=== PATIENT | male | born 1990 | race Caucasian/White ===

== ENCOUNTER 2021-04-18 11:55 | Outpatient (CLI) | payer OTHER | END 2021-04-18 23:59 | disposition home or self-care (01) | LOC: EDBD → LAB.N 11:55 | PROVIDERS: ATTEND Family Medicine | DX: U07.1 COVID-19 (principal) | CPT/HCPCS: 87275; 87276 ==

== ENCOUNTER 2022-04-23 14:51 | Emergency (ER) | payer OTHER ==
[2022-04-23 15:20] LABS: BASOPHILS % (AUTO) 0.3 %; EOSINOPHILS # (AUTO) 0.1 10^3/uL (0.0-0.7); EOSINOPHILS % (AUTO) 2.1 %; HCT - HEMATOCRIT 43.5 % (42.0-52.0); HGB - HEMOGLOBIN 15.1 g/dL (14.0-18.0); LYMPHOCYTES # (AUTO) 1.9 10^3/uL (1.5-3.5); LYMPHOCYTES % (AUTO) 32.2 %; MEAN CORPUSCULAR HEMOGLOBIN 29.8 pg (27.0-31.0); MEAN CORPUSCULAR HGB CONC 34.7 g/dL (32.0-36.0); MEAN CORPUSCULAR VOLUME 85.8 fL (80.0-94.0); MEAN PLATELET VOLUME 10.4 fL (7.4-11.4); MONOCYTES # (AUTO) 0.5 10^3/uL (0.0-1.0); MONOCYTES % (AUTO) 8.3 %; NEUTROPHILS # (AUTO) 3.3 10^3/uL (1.5-6.6); NEUTROPHILS % (AUTO) 56.9 %; PLT - PLATELET COUNT 279 10^3/uL (130-450); RED BLOOD COUNT 5.07 10^6/uL (4.70-6.10); RED CELL DISTRIBUTION WIDTH 12.7 % (12.0-15.0); WHITE BLOOD COUNT 5.8 x10^3/uL (4.8-10.8)
[2022-04-23 15:21] LABS: BILIRUBIN,URINE NEGATIVE (NEGATIVE); GLUCOSE, URINE (UA) NEGATIVE (NEGATIVE); KETONES,URINE (UA) NEGATIVE (NEGATIVE); LEUKOCYTE ESTERASE, URINE NEGATIVE (NEGATIVE); NITRITE,URINE NEGATIVE (NEGATIVE); OCCULT BLOOD,URINE NEGATIVE (NEGATIVE); PROTEIN,URINE NEGATIVE (NEGATIVE); UROBILINOGEN,URINE 1 (NORMAL) E.U./dL (NORMAL)
[2022-04-23 15:23] LABS: CLARITY,URINE CLEAR (CLEAR)
[2022-04-23 15:31] LABS: ALBUMIN 4.2 g/dL (3.2-5.5); ALBUMIN/GLOBULIN RATIO 1.4 (1.0-2.2); BILIRUBIN,TOTAL 0.7 mg/dL (0.2-1.0); CREATININE 1.3 mg/dL (0.6-1.2); TOTAL PROTEIN 7.3 g/dL (6.7-8.2)
--- NOTE | 2022-04-23 19:44 | ED Physician Documentation ---
History of Present Illness - Stated complaint Stated Complaint: MALE - Chief complaint Chief Complaint: Abd Pain - History obtained from History obtained from: Patient - Additonal information Additional information: 31-year-old male presents emergency department for evaluation of rectal bleeding. This has been a intermittent problem for a long time. He always has rectal bleeding when he strains to have hard bowel movements. He has been trying stool softeners but is recently moved to [facility]. He is scheduled to have a colonoscopy this upcoming Friday. He reports that he is never seen blood drip into the toilet before and on the advice of needing medical was told to come to the ER for further evaluation. No fevers no abdominal pain no vomiting. No pertinent past surgical history. History provided by patient. Reliable historian Review of Systems Constitutional: reports: Reviewed and negative Nose: reports: Reviewed and negative Cardiac: reports: Reviewed and negative Respiratory: reports: Reviewed and negative GI: reports: Reviewed and negative : reports: Other (Rectal bleeding) Skin: reports: Reviewed and negative Musculoskeletal: reports: Reviewed and negative Neurologic: reports: Reviewed and negative PD PAST MEDICAL HISTORY - Past Medical History Past Medical History: Yes Cardiovascular: None Respiratory: None Neuro: Headaches Endocrine/Autoimmune: None GI: Hemorrhoids : None HEENT: None Psych: None Musculoskeletal: None Derm: None - Past Surgical History Past Surgical History: Yes General: Other - Present Medications Home Medications: Ambulatory Orders Medication Instructions Recorded Confirmed Fluoxetine HCl [Prozac] 60 mg PO DAILY 04/23/22 04/23/22 Trazodone HCl 100 mg PO HS 04/23/22 04/23/22 - Allergies Allergies/Adverse Reactions: Allergies Allergy/AdvReac Type Severity Reaction Status Date / Time latex Allergy Hives Verified 04/23/22 14:58 - Social History Does the pt smoke?: No Smoking Status: Never smoker Does the pt drink ETOH?: No Does the pt have substance abuse?: No - Immunizations Immunizations are current?: Yes PD ED PE EXPANDED - General General: Alert, No acute distress - Rectal Rectal: Normal Tone, Foot Specialist present, Other (Superficial anal fissure at about 3:00. Digital rectal exam mildly tender but no blood in vault. No external hemorrhoids noted.) Results - Vitals Vitals: Vital Signs - 24 hr 04/23/22 04/23/22 15:01 18:26 Temperature 36.2 C L 36 C L Heart Rate 74 66 Respiratory 18 16 Rate Blood Pressure 148/94 H 159/99 H O2 Saturation 97 99 Oxygen O2 Source Room air - Labs Labs: Laboratory Tests 04/23/22 04/23/22 04/23/22 15:10 15:14 15:14 WBC 5.8 RBC 5.07 Hgb 15.1 Hct 43.5 MCV 85.8 MCH 29.8 MCHC 34.7 RDW 12.7 Plt Count 279 MPV 10.4 Neut # (Auto) 3.3 Lymph # (Auto) 1.9 [place] # (Auto) 0.5 Eos # (Auto) 0.1 Baso # (Auto) 0.0 Absolute Nucleated RBC 0.00 Nucleated RBC % 0.0 Sodium 139 Potassium 4.0 Chloride 103 Carbon Dioxide 29 Anion Gap 7.0 BUN 18 Creatinine 1.3 H Estimated GFR (MDRD) 64 L Glucose 87 Calcium 9.0 Total Bilirubin 0.7 AST 29 ALT 55 Alkaline Phosphatase 62 Total Protein 7.3 Albumin 4.2 Globulin 3.1 Albumin/Globulin Ratio 1.4 Lipase 30 Urine Color YELLOW Urine Clarity CLEAR Urine pH 6.0 Ur Specific Laurel >=1.030 H Urine Protein NEGATIVE Urine Glucose (UA) NEGATIVE Urine Ketones NEGATIVE Urine Occult Blood NEGATIVE Urine Nitrite NEGATIVE Urine Bilirubin NEGATIVE Urine Urobilinogen 1 (NORMAL) Ur Leukocyte Esterase NEGATIVE Ur Microscopic Review NOT INDICATED Urine Culture Comments NOT INDICATED PD Medical Decision Making - ED course Complexity details: reviewed results, considered differential, d/w patient ED course: 31-year-old male presents for rectal bleeding which has become a chronic problem and is associated with straining to defecate. He is scheduled to undergo colonoscopy on Friday. He strained harder than normal today and had blood drop into the toilet bowl causing pink water. He was advised by [employer] to come to the ER in order to be eligible for the colonoscopy on Friday. His CBC today is unremarkable. Abdominal exam revealed no tenderness. His digital rectal exam reveals a superficial anal fissure at about 3:00 on the left lateral recumbent side positioning. However no blood was seen in the vault and no external hemorrhoids noted. Given lack of abdominal pain and unremarkable labs will defer CT imaging at this time. The evaluation for rectal bleeding would be the planned colonoscopy w [facility] is upcoming. Patient is discharged home in stable condition Departure - Departure Disposition: Home, Self Care Clinical Impression: Rectal bleeding Condition: Stable Record reviewed to determine appropriate education?: Yes Comments: Raulito you were seen today for rectal bleeding after straining with defecation. This has become a chronic problem and it is the reason you are having a colonoscopy on Friday. Today your labs including your hemoglobin and hematocrit were normal. Your digital rectal exam does reveal a small anal fissure but there was no blood on the exam. You do need to continue with colonoscopy. MiraLAX may give you watery diarrhea and cause a lot of cramping. You might soften stool using Metamucil. Increase your water intake. Take a sitz bath this will be soothing to the rectal region. Return to the ER if your symptoms are worsening
[2022-04-23 20:07] VITALS: BP 140/80
== END 2022-04-23 20:08 | disposition home or self-care (01) ==
LOC: ED 14:51
DX: K62.5 Hemorrhage of anus and rectum (principal)
CPT/HCPCS: 36415; 80053; 81001; 81003; 83690; 85025; 87086; 99283

== ENCOUNTER 2022-04-30 06:26 | Outpatient (CLI) | payer OTHER ==
--- NOTE | 2022-04-30 11:59 | MRI Report ---
PROCEDURE: SHOULDER WO - RT INDICATIONS: PAIN IN RIGHT SHOULDER TECHNIQUE: Noncontrast oblique coronal T2 fast spin echo with fat saturation, oblique sagittal T1 spin echo and T2 fast spin echo with fat saturation, axial T1 spin echo and T2 fast spin echo with fat saturation t hrough the shoulder. COMPARISON: None. FINDINGS: Image quality: Excellent. Rotator cuff: There is moderate supraspinatus and subscapularis tendinosis and mild infraspinatus ten dinosis. There is partial-thickness tear involving the footprint of the supraspinous tendon. No tendo n retraction. No rotator cuff muscle atrophy. Bones and bursae: No bone marrow contusions or fractures. Mild acromioclavicular and glenohumeral zayda int degeneration. The acromion demonstrates conventional anatomy, without an os acromiale. There is a small amount of subacromial-subdeltoid, as well as subcoracoid bursal fluid, suggesting bursitis.. Capsule and soft tissues: There are postsurgical changes in the anterior inferior labrum. In the abs ence of intra-articular contrast, the glenohumeral ligaments appear intact. The long head of the bic eps tendon demonstrates normal location and morphology. Mild tendinosis of the long head of the bicep s tendon. The rotator interval appears normal, without fibrosis. The coracohumeral ligament is celestino l in thickness. There is an artifact or a small intra-articular body in the anterior inferior aspect of the glenohumeral joint (series 6 image 35). IMPRESSION: 1. Moderate supraspinous and subscapularis tendinosis, and mild infraspinous tendinosis. There is par tial-thickness tear involving the footprint of the supraspinous tendon. No full-thickness tendon tear or tendon retraction. No rotator cuff muscle atrophy. 2. Mild acromioclavicular and glenohumeral joint degeneration. 3. Mild subcutaneous acromial-subdeltoid and subcoracoid bursitis. 4. Mild tendinosis of the long head of the biceps tendon. 5. Postsurgical changes in the anterior inferior labrum. There is an artifact or a small intra-articu lar body in the anterior inferior aspect of the glenohumeral joint. Reviewed by: Mckinley Obrien MD on 04/30/2022 10:58 AM [facility] Approved by: Mckinley Obrien MD on 04/30/2022 10:58 AM [facility] Station ID: [id number]
== END 2022-04-30 06:27 | disposition home or self-care (01) ==
LOC: DI 06:26
PROVIDERS: ATTEND Preventive Medicine Aerospace Medicine
DX: M75.111 Incomplete rotator cuff tear or rupture of right shoulder, not specified as traumatic (principal); M19.011 Primary osteoarthritis, right shoulder; M75.51 Bursitis of right shoulder; M67.813 Other specified disorders of tendon, right shoulder

== ENCOUNTER 2022-09-03 11:56 | Outpatient (CLI) | payer OTHER ==
[~2022-09-03 11:56] MED LIST: BUPIVACAINE 0.5% PF 10 ML VIAL ONE; GADOBUTROL 7.5 MMOL/7.5 ML VIAL ONE; LIDOCAINE-MPF 1% 5 ML VIAL ONE; TRIAMCINOLONE 40 MG/ML VIAL ONE; iohexoL-240 10 ML VIAL IVP ONE
[2022-09-03] MEDS ORDERED: GADOBUTROL 7.5 MMOL/7.5 ML VIAL IVP ONE (13:55)
[2022-09-03] MEDS ORDERED: LIDOCAINE-MPF 1% 5 ML VIAL SUBQ ONE (13:56)
[2022-09-03] MEDS ORDERED: BUPIVACAINE 0.5% PF 10 ML VIAL IM ONE (13:57)
[2022-09-03] MEDS ORDERED: TRIAMCINOLONE 40 MG/ML VIAL IM ONE (13:57)
[2022-09-03] MEDS ORDERED: iohexoL-240 10 ML VIAL IVP ONE (13:58)
--- NOTE | 2022-09-03 14:47 | XRAY Report ---
PROCEDURE: Arthrogram Needle Placement INDICATIONS: PAIN IN RIGHT SHOULDER CONTRAST: Intra-articular contrast FLUOROSCOPY TIME: 0.1 min TECHNIQUE: The indications, alternatives, benefits, risks, and complications of the procedure were explained to the patient. Written informed consent was obtained and placed in the chart. The shoulder was examin ed fluoroscopically and a site for needle placement chosen for entry into the glenohumeral joint from an anterior approach. The skin was prepped and draped in the usual fashion, and 1% lidocaine infilt rated from skin down to joint capsule. A spinal needle was inserted into the glenohumeral joint, and a small amount of iodinated contrast media injected to confirm intra-articular placement of the need le tip. This was followed by approximately 12 mL dilute solution of a gadolinium containing MR contr ast agent. This was mixed with steroid and bupivacaine. The needle was removed and a dressing was applied. The patient was given postprocedural instructions and sent to the MR suite for MR imaging. FINDINGS: A single fluoroscopic spot image demonstrates intra-articular location of injected iodinated contrast . IMPRESSION: Successful fluoroscopically guided administration of dilute Gadolinium solution into the shoulder isabel seay for MR arthrogram. This was also mixed with steroid solution and bupivacaine. Reviewed by: Reynold Weber MD on 09/03/2022 2:45 PM PDT Approved by: Reynold Weber MD on 09/03/2022 2:45 PM PDT Station ID: [id number]
--- NOTE | 2022-09-03 18:02 | MRI Report ---
PROCEDURE: ARTHROGRAM SHOULDER - RT INDICATIONS: PAIN IN RIGHT SHOULDER CONTRAST: Dilute intra-articular gadolinium. TECHNIQUE: After the administration of 12 mL of dilute intra-articular Gadolinium contrast, oblique coronal T1 a nd T2 spin echo with fat saturation, oblique sagittal T1 spin echo with and without fat saturation, o blique sagittal T2 fast spin echo with fat saturation, axial T1 spin echo with fat saturation through the shoulder. COMPARISON: None. FINDINGS: Image quality: Excellent. Rotator cuff: Mild T2 signal elevation diffusely throughout the supraspinatus and infraspinatus tend ons at the humeral insertion sites extending the muscular tendinous junctions, indicating tendinopath y. The supraspinatus, infraspinatus, and subscapularis tendons appear intact throughout. No rotator cuff muscle atrophy on sagittal images. Bones and bursae: No bone marrow contusions or fractures. Mild acromioclavicular joint degeneration. The acromion demonstrates conventional anatomy, without an os acromiale. Capsule and soft tissues: There is moderate irregularity and undercutting of the anteroinferior labru m. The long head of the biceps tendon demonstrates normal location and morphology. The rotator inter falguni appears normal, without fibrosis. The coracohumeral ligament is of normal thickness. No intra-a rticular bodies. IMPRESSION: 1. Anteroinferior glenoid labral tearing. 2. Supraspinatus and infraspinatus tendinopathy. No rotator cuff tear. 3. Mild acromioclavicular joint osteoarthritis. Reviewed by: Meche Simmons MD on 09/03/2022 5:01 PM [facility] Approved by: Meche Simmons MD on 09/03/2022 5:01 PM [facility] Station ID: [id number]
== END 2022-09-03 11:57 | disposition home or self-care (01) ==
LOC: DI 11:56
PROVIDERS: ATTEND Orthopaedic Surgery
DX: S43.491A Other sprain of right shoulder joint, initial encounter (principal); M19.011 Primary osteoarthritis, right shoulder; M75.91 Shoulder lesion, unspecified, right shoulder
CPT/HCPCS: 23350; 73222; 77002; A9585; Q9966

== ENCOUNTER 2022-11-28 13:40 | Outpatient (CLI) | payer OTHER ==
--- NOTE | 2022-11-28 14:16 | Sleep Patient Instructions ---
Sleep Center Visit Summary - Patient Visit Information Reason for Visit: Initial consult for evaluation of sleep disordered breathing and other sleep issues. - Patient Instructions Instructions Attached: Sleep Study, Sleep Clinic Visit, Sleep Study Home Monitor Additional Instructions: You will be completing a sleep study, either an in-lab polysomnography (PSG) or home sleep study (HST). You will follow-up in the sleep care office after the sleep study is completed to hear the results and talk about therapy, if needed. You will be called by our office staff to schedule this appointment, but you may contact us with any questions. - Clinic Information Contact: [facility] [address] [place] [address] [email or web address] T: [phone]
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
[2022-11-28 15:41] VITALS: BP 130/92; O2SAT 96
== END 2022-11-28 13:41 | disposition home or self-care (01) ==
LOC: SC 13:40
PROVIDERS: ATTEND Nurse Practitioner Family
DX: R06.83 Snoring (principal); G47.8 Other sleep disorders; R06.81 Apnea, not elsewhere classified; R51.9 Headache, unspecified; G47.10 Hypersomnia, unspecified; E66.9 Obesity, unspecified; Z68.34 Body mass index [BMI] 34.0-34.9, adult
CPT/HCPCS: 99203; 99212

== ENCOUNTER 2022-12-19 19:26 | Outpatient (CLI) | payer OTHER | END 2022-12-19 19:27 | disposition home or self-care (01) | LOC: SC 19:26 | PROVIDERS: ATTEND Nurse Practitioner Family | DX: G47.33 Obstructive sleep apnea (adult) (pediatric) (principal); G47.61 Periodic limb movement disorder | CPT/HCPCS: 95810 ==

== ENCOUNTER 2022-12-31 14:33 | Outpatient (CLI) | payer OTHER ==
--- NOTE | 2022-12-31 15:20 | Sleep Patient Instructions ---
Sleep Center Visit Summary - Patient Visit Information Reason for Visit: Sleep study followup - Patient Instructions Instructions Attached: CPAP Dc, CPAP Additional Instructions: You are being started on CPAP therapy with pressure setting at 5-15 cmH2O. You will need to call the sleep care office to set up your follow up once you have your APAP machine and we will schedule a visit to check compliance and response to therapy at that time. You may call the office with any concerns about pressure feeling too low or too much for adjustment, if needed. You should contact DME supplier for any questions or concerns about mask or equipment. Please call office to schedule a follow up appointment in the sleep care office one month after obtaining new device. - Clinic Information Contact: [facility] [address] [place] [address] [email or web address] T: [phone]
--- NOTE | 2022-12-31 15:24 | SLEEP CARE CONSULTATION ---
Information from patient questionnaire entered by Barb Michael. I have reviewed and concur with the information entered by Barb Michael. This document represents the service I personally performed and the decisions made by me, Chana Escobedo ARNP. History of Present Illness Service Date and Time: 12/31/2022 1433 Initial [place] Sleepiness Scale score: 7 (11/28/22) Current [place] Sleepiness Scale score: 7 (12/31/22) Additional HPI information: SAMIR PYANE returns for follow up and results of the recently performed polysomnography. His sleep study showed moderate obstructive sleep apnea with an average AHI of 22.1 and brandon oxygen saturation of 85%. There was also mild periodic leg movements of sleep that did contribute to sleep fragmentation. I explained the pathophysiology behind obstructive sleep apnea. We then spent quite a bit of time discussing different treatment options. For mild obstructive sleep apnea, surgery and oral appliance are alternatives to nasal CPAP therapy but in moderate or severe cases, nasal CPAP is the most effective and reliable treatment. I reviewed the impact of weight changes on sleep apnea and strongly recommended losing weight. After some discussion, the patient opted to go with the nasal CPAP therapy. Nasal autoCPAP set at 5-15 cmH20 will be ordered with rationale explained. A manual titration study will be ordered if unable to find optimal pressure with office adjustments. I explained how CPAP machine works and what to expect when using the machine. Using CPAP every night in order to get used to it was emphasized. Patient advised to put CPAP mask on before getting into bed so as not to fall asleep without CPAP. To assist acclimation to CPAP use, it could also be used for a short time during day while reading or watching TV. The patient was instructed to call the CPAP supplier to discuss any mechanical problem that may occur. If the mask given is uncomfortable or is difficult to keep on through the night even with adjustment, contact the CPAP supplier as many will replace with another mask style if notified before 30 days. If snoring or perceives is not getting enough air or too much air from the machine, notify this office. Patient does not drink alcohol. Patient was cautioned about risks of drowsy driving until sleepiness symptoms resolve. Patient denies drowsy driving. Sleep Study - Results Type of Sleep Study: Polysomnography (COMPLETED 12/19/22) Polysomnography/Home Sleep Study results: IMPRESSION: The quality of the study is good. The patient had slightly reduced sleep efficiency due to frequent awakenings throughout the night. The sleep architecture was abnormal for sleep fragmentation and reduced amount of time spent in slow wave sleep (N3). Respiratory monitoring showed moderate obstructive sleep apnea-hypopnea (AHI = 22.1) associated with frequent arousals, oxyhemoglobin desaturation and mild hypoxia (brandon oxygen saturation of 85%). The respiratory events occurred independently of sleep stage and body position (supine AHI = 23.8; non-supine = 19.65). Snore was moderate to loud in intensity. There was mild periodic leg movement of sleep contributing to the sleep fragmentation. Cardiac rhythm was normal sinus rhythm without significant arrhythmia. No abnormal behavior (parasomnia) observed during the night. Allergies and Home Medications Known drug allergies: No (as listed) Drug allergies reviewed: Yes Home medication list reviewed: Yes (no changes) Allergy and home medication list: Allergies latex Allergy (Verified 12/30/22 08:59) Hives Review of Systems Review of systems same as previous: Yes (no changes) Physical Exam Vital signs obtained and entered by: BARB Engel MA Blood Pressure: 136/82 (LEFT ARM) Cuff size: regular Heart Rate: 86 O2 Saturation: 96 Height: 5 ft 10 in Weight: 250 lb 12.8 oz Body Mass Index: 35.9 BMI Classification: Obese Impression and Plan 1. Obstructive Sleep Apnea-Hypopnea Syndrome, moderate, with lowest oxygen saturation of 85%. Obviously this is the cause of the patients symptoms of unrefreshed sleep, and excessive daytime sleepiness. Positive pressure therapy could benefit hypertension, anxiety, depression and mood disorder (PTSD). As mentioned above, the patient will be started on nasal autoCPAP therapy with pressure set at 5-15 cmH2O. Compliance guidelines also reviewed. A copy of compliance guidelines will be given for reference at check out. 2. Obesity, unspecified. Currently patients BMI is 35.9. Obesity increases the risk of apnea, CPAP pressure requirements and overall health risks especially cardiovascular and diabetes. Thus patient is advised to lose weight. 3. Periodic limb movement, mild, that did contribute to the fragmentation of patients sleep. Periodic limb movement of sleep (PLMS) is characterized by episodes of repetitive limb movements that occur during sleep and usually involve the lower limbs. The etiology is unknown. Caffeine can aggravate PLMS and should be avoided. Sleep hygiene methods can also improve sleep as well as lifestyle changes such as regular exercise. Patient was advised that no treatment is needed at this time. If symptoms increase, then further evaluation is indicated. * Nasal auto CPAP therapy, pressure at 5-15 cm H2O. * Attempt to lose weight. * Avoid alcohol consumption near bedtime. * Avoid supine sleep until using CPAP. * The patient is again cautioned about driving until sleepiness completely resolves. * Return one month after CPAP obtained. I will assess response to therapy and compliance at that time. Counseling Topics: Weight loss health impact Prescriptions: Auto CPAP Visit Type: In Office Time Spent with Patient (minutes): 20 Provider Statement: I spent 100% of the Face to Face Visit with the patient with greater than 50% spent counseling the patient and coordination of care.
[2022-12-31 15:30] VITALS: BP 136/82; O2SAT 96
== END 2022-12-31 14:34 | disposition home or self-care (01) ==
LOC: SC 14:33
PROVIDERS: ATTEND Nurse Practitioner Family
DX: G47.33 Obstructive sleep apnea (adult) (pediatric) (principal); E66.9 Obesity, unspecified; G47.61 Periodic limb movement disorder; Z68.35 Body mass index [BMI] 35.0-35.9, adult
CPT/HCPCS: 99212; 99213